=== PATIENT | female | born 1975 | race Caucasian/White ===

== ENCOUNTER 2019-02-09 15:35 | Emergency (ER) | payer OTHER ==
[~2019-02-09] VITALS: Ht 167.6 cm; Wt 74.2 kg
[2019-02-09] MEDS ORDERED: IBUP80TA PO (15:56)
[2019-02-09] MEDS ORDERED: PROP80CA PO (15:56)
[2019-02-09] MEDS ORDERED: NORT1TAB3 PO (15:56)
[2019-02-09] MEDS ORDERED: FERR325T3 PO (15:56)
[2019-02-09] MEDS ORDERED: HYDR-3363 PO (15:56)
[2019-02-09] MEDS ORDERED: DULO1CAP2 PO (15:56)
[2019-02-09] MEDS ORDERED: LOSA50TA88 PO (15:56)
[2019-02-09 16:23] LABS: HEMATOCRIT 33.8 % (36.0-47.0); MEAN CORPUSCULAR HEMOGLOBIN 28.4 pg (27.0-33.0); MEAN CORPUSCULAR HGB CONC 32.5 g/dl (32.0-36.5); MEAN CORPUSCULAR VOLUME 87.1 fl (80.0-96.0); PLATELET COUNT, AUTOMATED 259 10^3/uL (150-450); RED BLOOD COUNT 3.88 10^6/uL (4.00-5.40); WHITE BLOOD COUNT 11.2 10^3/uL (4.0-10.0)
[2019-02-09 16:52] LABS: AMPHETAMINES LEVEL URINE NEGATIVE (NEGATIVE); BARBITURATES URINE NEGATIVE (NEGATIVE); BENZODIAZEPINES URINE NEGATIVE (NEGATIVE); CANNABINOIDS URINE NEGATIVE (NEGATIVE); COCAINE METABOLITE URINE NEGATIVE (NEGATIVE); METHADONE URINE NEGATIVE (NEGATIVE); OPIATES URINE NEGATIVE (NEGATIVE); PHENCYCLIDINE URINE NEGATIVE (NEGATIVE)
[2019-02-09 16:53] LABS: HCG, SERUM QUALITATIVE NEGATIVE (NEGATIVE)
[2019-02-09 17:01] LABS: ACETAMINOPHEN LEVEL < 2.0 UG/ML (10.0-30.0); ALBUMIN 3.3 GM/DL (3.2-5.2); ALT/SGPT 16 U/L (12-78); BILIRUBIN,DIRECT 0.2 MG/DL (0.0-0.2); BILIRUBIN,TOTAL 0.4 MG/DL (0.2-1.0); BLOOD UREA NITROGEN 10 MG/DL (7-18); CALCIUM LEVEL 8.2 MG/DL (8.5-10.1); CARBON DIOXIDE LEVEL 23 MEQ/L (21-32); CHLORIDE LEVEL 108 MEQ/L (98-107); ETHYL ALCOHOL (ETHANOL) 0.004 % (0.000-0.010); GLOMERULAR FILTRATION RATE > 60.0 (>58); GLUCOSE, FASTING 92 MG/DL (70-100); POTASSIUM SERUM 4.7 MEQ/L (3.5-5.1); SALICYLATE LEVEL < 1.7 MG/DL (5.0-30.0); SODIUM LEVEL 139 MEQ/L (136-145); TOTAL PROTEIN 6.9 GM/DL (6.4-8.2)
[2019-02-09] MEDS ORDERED: PHENobarbital 30 MG TAB PO ONE (22:30)
[2019-02-10 00:48] VITALS: BP 135/75
--- NOTE | 2019-02-10 07:01 | ECGEPIP ---
[facility] - ED Test Date: 2019-02-09 Pat Name: HAZEL COLE Department: Room: - Gender: Female Test Tech: RASHMI : 1975 Requested By: BRITNEY Burgess Order Number: [id number] Reading MD: Rober Rashid Measurements Intervals [place] Rate: 77 P: 32 MD: 136 QRS: QRSD: 79 T: 18 QT: 385 QTc: 436 Interpretive Statements SINUS RHYTHM NSTTW ABNORMALITIES NO PRIORS FOR COMPARISON Electronically Signed on 02-10-2019 7:01:03 EDT by Rober Rashid
== END 2019-02-10 00:52 | disposition short-term general hospital (02) ==
LOC: M ED 15:35
DX: R45.851 Suicidal ideations (principal); I10 Essential (primary) hypertension; Z79.899 Other long term (current) drug therapy; Z88.1 Allergy status to other antibiotic agents; Z88.2 Allergy status to sulfonamides
CPT/HCPCS: 36415; 80048; 80076; 80307; 84443; 84703; 85027; 93005; 99285; G0480